=== PATIENT | female | born 1980 | race Caucasian/White ===

== ENCOUNTER 2017-08-14 18:02 | Emergency (ER) | payer OTHER ==
[~2017-08-14] VITALS: Ht 170.2 cm; Wt 73.9 kg
[2017-08-14 18:08] VITALS: Ht 170.2 cm; Wt 73.9 kg
[2017-08-14 19:39] VITALS: BP 122/68
== END 2017-08-14 19:39 | disposition home or self-care (01) ==
LOC: ED 18:02
DX: G43.909 Migraine, unspecified, not intractable, without status migrainosus (principal); R11.0 Nausea; F40.298 Other specified phobia
CPT/HCPCS: J0780; J3030

== ENCOUNTER 2018-05-19 13:09 | Emergency (ER) | payer OTHER ==
[~2018-05-19] VITALS: Ht 170.2 cm; Wt 78.5 kg
[2018-05-19 13:18] VITALS: Ht 170.2 cm; Wt 78.5 kg
[2018-05-19 15:30] VITALS: BP 117/68
== END 2018-05-19 15:30 | disposition home or self-care (01) ==
LOC: ED 13:09
DX: S16.1XXA Strain of muscle, fascia and tendon at neck level, initial encounter (principal); S06.0X0A Concussion without loss of consciousness, initial encounter; G43.909 Migraine, unspecified, not intractable, without status migrainosus; V49.9XXA Car occupant (driver) (passenger) injured in unspecified traffic accident, initial encounter; Y93.I9 Activity, other involving external motion; Y92.413 State road as the place of occurrence of the external cause; Y99.8 Other external cause status